=== PATIENT | male | born 1995 | race Caucasian/White ===

== ENCOUNTER 2022-03-19 18:47 | Emergency (ER) | payer BC ==
[~2022-03-19] VITALS: Ht 190.5 cm; Wt 104.3 kg
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
--- NOTE | 2022-03-19 21:10 | NUR ---
BROUGHT TO CT DEPT.
[2022-03-19] MEDS ORDERED: CYCL5TAB PO (23:13)
--- NOTE | 2022-03-19 23:17 | NUR ---
Patient does not wish to proceed with medical care recommended by Dr. Martinez. Patient given information related to possible complications, up to and including , which could occur as a result of leaving the hospital at this time. Patient verbalizes understanding of risks involved due to leaving against medical advice. Patient has signed AMA form.
[2022-03-19 23:20] VITALS: BP 130/72
== END 2022-03-19 23:20 | disposition left against medical advice (07) ==
LOC: ER 18:47
DX: S16.1XXA Strain of muscle, fascia and tendon at neck level, initial encounter (principal); R51.9 Headache, unspecified; M54.9 Dorsalgia, unspecified; Z60.2 Problems related to living alone; Z79.899 Other long term (current) drug therapy; V89.2XXA Person injured in unspecified motor-vehicle accident, traffic, initial encounter; Y93.89 Activity, other specified; Y92.89 Other specified places as the place of occurrence of the external cause; Y99.8 Other external cause status
CPT/HCPCS: 70450-TC; 72125-TC; 72131-TC

== ENCOUNTER 2024-06-20 02:06 | Emergency (ER) | payer SELFPAY ==
[~2024-06-20] VITALS: Ht 190.5 cm; Wt 125.2 kg
[~2024-06-20 02:06] MED LIST: CYCL5TAB PO
[2024-06-20] MEDS ORDERED: MAG HYDROX/AL HYDROX/SIMETH 30 ML UDC ONE (02:53)
[2024-06-20] MEDS ORDERED: LIDOCAINE VISCOUS 2% UD 15 ML UDC ONE (02:53)
[2024-06-20] MEDS: MAG HYDROX/AL HYDROX/SIMETH 30 ML UDC PO ONE (02:55)
[2024-06-20] MEDS: LIDOCAINE VISCOUS 2% UD 15 ML UDC MM ONE (02:55)
[2024-06-20 03:55] VITALS: BP 141/79; TEMP 98; O2SAT 100
== END 2024-06-20 03:30 | disposition home or self-care (01) ==
LOC: ER 02:10
DX: K21.9 Gastro-esophageal reflux disease without esophagitis (principal); Z60.2 Problems related to living alone